=== PATIENT | female | born 1975 | race Two or more races ===

== ENCOUNTER 2023-05-03 14:25 | Emergency (ER) | payer OTHER ==
[~2023-05-03] VITALS: Ht 157.5 cm; Wt 52.0 kg
[2023-05-03 14:48] VITALS: BP 126/72; O2SAT 99
[2023-05-03 15:21] LABS: CLARITY URINE CLOUDY (CLEAR); COLOR URINE YELLOW (YELLOW); GLUCOSE URINE NEGATIVE (NEGATIVE); KETONES URINE NEGATIVE (NEGATIVE); LEUKOCYTE ESTERASE URINE TRACE (NEGATIVE); NITRITE URINE NEGATIVE (NEGATIVE); OCCULT BLOOD URINE NEGATIVE (NEGATIVE); PROTEIN URINE NEGATIVE (NEGATIVE); SPECIFIC GRAVITY URINE 1.014 (1.005-1.030); UROBILINOGEN URINE 0.2 E.U./dL (0.2-1.0)
[2023-05-03 15:24] LABS: WBC URINE 0-2 /hpf (0-2); YEAST URINE NONE SEEN
[2023-05-03 15:25] LABS: BASOPHILS % 0.4 % (0.0-2.0); EOSINOPHILS % 1.2 % (0.0-5.0); HEMATOCRIT. 34.1 % (36.0-48.0); HEMOGLOBIN. 11.4 g/dL (12.0-16.0); LYMPHOCYTES % 22.7 % (20.0-50.0); MEAN CORPUSCULAR HEMOGLOBIN 29.3 pg (28.0-32.0); MEAN CORPUSCULAR HGB CONC 33.5 g/dL (31.0-37.0); MEAN CORPUSCULAR VOLUME 87.6 fL (81.0-99.0); MEAN PLATELET VOLUME 8.6 fl (7.4-10.4); MONOCYTES % 6.2 % (2.0-8.0); NEUTROPHILS % 69.5 % (40.0-76.0); PLATELET 255 x1000/uL (130-400); RED BLOOD CELL COUNT 3.89 mill/uL (4.2-5.4); RED CELL DISTRIBUTION WIDTH 13.2 % (11.6-14.6); WHITE BLOOD COUNT 6.8 x1000/uL (4.5-11.0)
[2023-05-03 15:38] LABS: CHLORIDE 109 mEq/L (98-107); INDEX HEMOLYSI 1 (1-3); INDEX ICTERIC 1 (1-4); INDEX LIPEMIC 1 (1-3); POTASSIUM 3.5 mEq/L (3.5-5.1); SODIUM 142 mEq/L (136-145)
[2023-05-03 15:53] LABS: AMORPHOUS SEDIMENT URINE 1+ /lpf; BACTERIA URINE 2+; RBC URINE 0-2 /hpf (0-2); SQUAMOUS EPITHELIAL CELL URINE 1+ /lpf (RARE/1+)
[2023-05-03 15:56] LABS: ALANINE AMINOTRANSFERASE 24 IU/L (13-61); ALBUMIN 4.1 g/dL (3.4-5.0); ASPARTATE AMINOTRANSFERASE 13 IU/L (15-37); BILIRUBIN TOTAL 0.3 mg/dL (0.1-1.0); CALCIUM 9.4 mg/dL (8.5-10.1); CARBON DIOXIDE 29 mEq/L (21-32); CREATININE 0.5 mg/dL (0.6-1.3); GLUCOSE 93 mg/dL (70-105); PROTEIN TOTAL 8.4 g/dL (6.0-8.3); UREA NITROGEN BLOOD 18 mg/dL (7-21)
[2023-05-03 16:10] LABS: TROPONIN I HIGH SENSITIVITY < 4 ng/L (<54)
[2023-05-03] MEDS ORDERED: SULFAMETHOXAZOLE/TRIMETHOPRIM 800/160MG TABLET PO NR (20:45)
[2023-05-03] MEDS ORDERED: SULF1TAB48 MT (21:09)
[2023-05-03 21:22] VITALS: PULSE 78; RESP 16; TEMP 98.5
== END 2023-05-03 21:23 | disposition home or self-care (01) ==
LOC: ER 14:25
DX: R10.31 Right lower quadrant pain (principal)
CPT/HCPCS: 36415; 74176; 76830; 76856; 80053; 81003; 81025; 84484; 85025; 93005; 99284